=== PATIENT | male | born 1980 | race Caucasian/White ===

== ENCOUNTER 2021-01-31 22:09 | Emergency (ER) | payer OTHER, SELFPAY ==
[2021-01-31 22:21] VITALS: BP 147/78; PULSE 79; RESP 16; TEMP 36.9; O2SAT 97
--- NOTE | 2021-01-31 22:24 | DI.RAD.S_ITS ---
PROCEDURE: XR FINGER RT MIN 2V INDICATIONS: crush injury TECHNIQUE: AP hand, 2 views of the right 1st finger(s) acquired. COMPARISON: None. FINDINGS: Bones: No fractures or dislocations. No suspicious bony lesions. Soft tissues: No suspicious soft tissue calcifications. No radiodense foreign body. IMPRESSION: No fracture. No osseous lesion. If symptoms and/or clinical suspicion for pathology persists, further assessment with repeat radiographs (7-10 days) or advanced imaging (e.g. CT, MRI or bone scan) should be considered. Dictated by: Tri Howell MD, PhD on 02/01/2021 at 8:06 Approved by: Tri Howell MD, PhD on 02/01/2021 at 8:07
--- NOTE | 2021-01-31 23:45 | ED.GENADULT ---
HPI - General Adult General Chief complaint: Extremity Injury, Upper Stated complaint: injured right thumb monday Time Seen by Provider: 01/31/21 23:33 Source: patient Mode of arrival: Ambulatory History of Present Illness HPI narrative: Patient is a 40-year-old male here for evaluation of an injury to his right thumb. A couple days ago he closed his thumb in a car door. Immediately afterwards had discomfort. He then shortly developed blood under his thumbnail. He released this at home a couple days later with a small amount of blood return. Since that time he has had pain at the base of his thumb along the skin. It started to drain blood earlier today. Came in to the emergency department for evaluation because of the continued discomfort. Review of Systems Constitutional Comments: No fevers Musculoskeletal Comments: Right thumb pain Integumentary/Breasts Comments: Bruising around the right thumb Neurologic Comments: No neurologic changes Hematologic/Lymphatic On Anticoagulants: No Patient History Medical History Healthy adult Social History lives independently: Yes Exam Initial Vital Signs Initial Vital Signs: Vital Signs Temperature 98.4 F 01/31/21 22:21 Pulse Rate 79 01/31/21 22:21 Respiratory Rate 16 01/31/21 22:21 Blood Pressure 147/78 H 01/31/21 22:21 Pulse Oximetry 97 01/31/21 22:21 Cardio Pulses: radial pulses present on the right Skin Other: He does have a subungual hematoma on the right. There is also paronychia of the right thumb as well Neuro Other: Sensation intact to light touch Extrem Other: Discomfort over the distal end of the thumb. Can bend at the IP joint without discomfort. Psych Appearance: grossly normal and well kempt Course Orders Ordered: ED Orders 01/31/21 22:24 XR finger RT min 2V Stat Vital Signs Vital signs: Vital Signs - 8 hr 01/31/21 22:21 Temperature 98.4 F Pulse Rate 79 Respiratory Rate 16 Blood Pressure 147/78 H Pulse Oximetry 97 Medical Decision Making Imaging Data Extremity x-ray #1: Radiologist's Impression: Soft tissue swelling adjacent to the nail bed. No foreign body or fracture MDM Narrative Medical decision making narrative: I did use a knife and was able to drain the paronychia and the patient had quite a bit of relief of his discomfort afterwards. Given the length of time since the injury will hold on draining of the subungual hematomas I feel that this will most likely be on helpful. We did discuss care instructions and return precautions. He expressed understanding and agreement. Discharge Plan Departure Patient Disposition: Home Clinical Impression: Subungual hematoma, Paronychia Instructions: DI for Subungual Hematoma Activity Restrictions/Additional Instructions: you can wash your hands like normal but I recommend not soaking your hand anything. would expect some drainage over the next several hours. You can use a bandage for this. Return to the emergency department for any new or worsening symptoms
== END 2021-01-31 23:50 | disposition home or self-care (01) ==
PROVIDERS: Emergency Provider Emergency Medicine
DX: S60.111A Contusion of right thumb with damage to nail, initial encounter (principal); L03.011 Cellulitis of right finger; W23.0XXA Caught, crushed, jammed, or pinched between moving objects, initial encounter
CPT/HCPCS: 73140; 99281; 99283